=== PATIENT | female | born 1980 | race African-American/Black ===

== ENCOUNTER 2025-03-23 11:27 | Emergency (ER) | payer OTHER, MEDICAID ==
[~2025-03-23] VITALS: Ht 177.8 cm; Wt 180.0 kg
[2025-03-23 11:29] VITALS: O2SAT 97
[2025-03-23 15:54] VITALS: BP 260/120; PULSE 76; RESP 22; TEMP 36.7; O2SAT 100
[2025-03-23] MEDS: CLONIDINE 0.1MG TABLET PO ONE (16:00)
== END 2025-03-23 17:10 | disposition home or self-care (01) ==
LOC: ER 11:27
DX: S46.912A Strain of unspecified muscle, fascia and tendon at shoulder and upper arm level, left arm, initial encounter (principal); I10 Essential (primary) hypertension; Z88.0 Allergy status to penicillin; V89.2XXA Person injured in unspecified motor-vehicle accident, traffic, initial encounter; Y93.89 Activity, other specified; Y92.410 Unspecified street and highway as the place of occurrence of the external cause; Y99.8 Other external cause status
CPT/HCPCS: 73030; 93005; 99283